=== PATIENT | male | born 1965 | race Caucasian/White ===

== ENCOUNTER 2018-02-06 20:17 | Emergency (ER) | payer OTHER ==
[2018-02-06] MEDS ORDERED: Sodium Chloride 0.9% 1000 ML 1,000 ML ONE ×2 (20:44→21:37)
[2018-02-06] MEDS: Sodium Chloride 0.9% 1000 ML 1,000 ML IV SCH (21:23)
[2018-02-06] MEDS ORDERED: Zofran 4 MG/2 ML VIAL ONE (21:36)
[2018-02-06] MEDS ORDERED: MORPHINE SULFATE 10 MG/ML ONE (21:37)
[2018-02-06] MEDS: MORPHINE SULFATE 10 MG/ML IM ONE (21:39)
[2018-02-06 21:40] LABS: Granulocyte Absolute (ANC) 18.44 (1.4-6.9); Hematocrit 44.1 % (42-50); Hemoglobin 15.6 gm/dl (12.5-18.0); Mean Cell Volume 86.5 fl (78-100); Mean Corpuscular Hemoglobin 30.6 pg (26-32); Mean Corpuscular Hgb Concent. 35.4 g/dl (32-36); Mean Platelet Volume 10.7 fl (6-9.5); Platelet Count 179 K/mm3 (150-450); Red Cell Distribution Width 12.2 % (11.5-14.0); White Blood Count 21.6 K/mm3 (4.0-10.5)
[2018-02-06] MEDS: Zofran 4 MG/2 ML VIAL IV ONE (21:43)
[2018-02-06 21:54] LABS: Appearance CLEAR (CLEAR)
[2018-02-06 21:55] LABS: Bilirubin NEGATIVE (NEGATIVE); Blood NEGATIVE Ery/ul (0-5); Glucose 1000 mg/dL (NEGATIVE); Ketones NEGATIVE (NEGATIVE); Leukocyte Esterase NEGATIVE (NEGATIVE); Nitrite NEGATIVE (NEGATIVE); Protein,Urine Dip NEGATIVE (Negative); Urobilinogen NORMAL mg/dL (0-1)
[2018-02-06] MEDS ORDERED: Zosyn 3.375GM/100 Ml D5W 3.375 GM/100 ML IVPB IV ONE (21:55)
[2018-02-06 22:01] LABS: Amphetamine,Urine NEGATIVE (NEGATIVE); Barbiturate,Urine NEGATIVE (NEGATIVE); Benzodiazepine,Urine POSITIVE (NEGATIVE); Cocaine,Urine NEGATIVE (NEGATIVE); Methadone,Urine NEGATIVE (NEGATIVE); Opiate,Urine NEGATIVE (NEGATIVE); PCP,Urine NEGATIVE (NEGATIVE); THC,Urine POSITIVE (NEGATIVE)
[2018-02-06] MEDS: Sodium Chloride 0.9% 1000 ML 1,000 ML IV STA (22:02)
[2018-02-06] MEDS: Zosyn 3.375GM/100 Ml D5W 3.375 GM/100 ML IVPB IV STA (22:03)
[2018-02-06 22:06] VITALS: BP 126/80; PULSE 108; O2SAT 96
[2018-02-06 22:12] LABS: AMYLASE 30 U/L (30-110); ANION GAP 13.1 MEQ/L (5-15); BLOOD UREA NITROGEN 9 mg/dL (9-20); CHLORIDE 93 mmol/L (98-107); Calcium 9.3 mg/dL (8.4-10.2); Carbon Dioxide 27 mmol/L (22-30); Creatinine 1 0.53 mg/dL (0.66-1.25); Glucose 373 mg/dL (74-106); Potassium 3.7 mmol/L (3.5-5.1); SODIUM 130 mmol/L (137-145)
--- NOTE | 2018-02-06 22:12 | ERPHSYRPT ---
- History of Present Illness Time Seen by Provider: 02/06/18 21:22 Source: patient Exam Limitations: clinical condition Patient Subjective Stated Complaint: 15 years ago had testicular abscess removed at [facility] and 4 days ago developed bump on right testical with N /V/D, Fever at home. Denies recent injury. Denies dysuria, hematuria. Triage Nursing Assessment: Pt is in pain while laying in bed stating he's falling asleep during assessment and requires to be asked questions twice. Physician History: PATIENT COMPLAINS OF PAIN, LEFT SIDED SCROTAL SWELLING X 7 DAYS. DENIES URINARY SYMPTOMS, FEVER OR CHILLS. DENIES NAUSEA, EMESIS OR DIARRHEA Timing/Duration: week(s) Activites at Onset: none Quality: throbbing Onset Location: other (SCROTAL) Severity of Pain-Max: severe Severity of Pain-Current: severe Prior abdominal problems: similar symptoms (SCROTAL SURGERY 10 YEARS AGO) Sexual intercourse history: non-contributory Modifying Factors: Improves With: movement Associated Symptoms: swelling Allergies/Adverse Reactions: No Known Drug Allergies Allergy (Unverified 02/06/18 21:20) Home Medications: No Reportable Medications [No Reported Medications] 02/06/18 [History] Hx Influenza Vaccination/Date Given: No Hx Pneumococcal Vaccination/Date Given: No - Review of Systems Constitutional: Fever Eyes: No Symptoms Ears, Nose, & Throat: No Symptoms Respiratory: No Cough, No Dyspnea Cardiac: No Symptoms, No Chest Pain, No Edema, No Syncope Abdominal/Gastrointestinal: No Abdominal Pain, No Nausea, No Vomiting, No Diarrhea Genitourinary Symptoms: Testicle Pain, Other (SCROTAL SWELLING), No Dysuria Musculoskeletal: No Symptoms, No Back Pain, No Neck Pain Skin: No Rash Neurological: No Dizziness, No Focal Weakness, No Sensory Changes Psychological: No Symptoms Endocrine: No Symptoms All Other Systems: Reviewed and Negative - Past Medical History Pertinent Past Medical History: Yes Cardiac History: Hypertension Endocrine Medical History: Diabetes Type II - Past Surgical History Past Surgical History: Yes Other Surgical History: Partial thyroidectomy - Social History Smoking Status: Current every day smoker Exposure to second hand smoke: No Drug Use: marijuana Patient Lives Alone: No - Nursing Vital Signs Nursing Vital Signs: Initial Vital Signs Pulse Rate 109 H 02/06/18 21:52 Respiratory Rate 18 02/06/18 21:52 Blood Pressure 120/77 02/06/18 21:52 O2 Sat by Pulse Oximetry 95 02/06/18 21:52 Pain Scale Pain Intensity 10 - Physical Exam General Appearance: no apparent distress, alert Eye Exam: PERRL/EOMI, eyes nml inspection Ears, Nose, Throat Exam: normal ENT inspection, TMs normal, pharynx normal, moist mucous membranes Neck Exam: normal inspection, non-tender, supple, full range of motion Respiratory Exam: normal breath sounds, lungs clear, No respiratory distress Cardiovascular Exam: regular rate/rhythm, normal heart sounds, normal peripheral pulses, tachycardia Gastrointestinal/Abdomen Exam: soft, normal bowel sounds (NONTENDER), No tenderness, No mass Male Genitalia Exam: testicular tenderness, other (MARKED SWELLING OVER LEFT SPERMATIC CORD THICKENING SCROTAL WALL WITH INDURATION , NO FOCAL SWELLING OR FLUCTUANCE) Back Exam: normal inspection, normal range of motion, No CVA tenderness, No vertebral tenderness Extremity Exam: normal inspection, normal range of motion, pelvis stable Neurologic Exam: alert, oriented x 3, cooperative, plate slitter and inspector II-XII nml as tested, normal mood/affect, sensation nml, No motor deficits Skin Exam: normal color, warm, dry Lymphatic Exam: No adenopathy SpO2 Interpretation: normal SpO2: 96 Oxygen Delivery: Nasal Cannula - Radiology Ultrasound Exam Scrotal Ultrasound: discussed w/radiologist (MARKED LEFT VARICOELE WITH HYPEREMIA, SWELLING WALL THICKENING, NO EVIDENCE OF FLUID LOCULATIONS OR ABSCESS) Ordered Tests: Active Orders 24 hr Category Date Time Status Clean Catch Urine Specimen STAT Care 02/06/18 20:41 Active IV Insertion STAT Care 02/06/18 20:35 Active TESTICLE [US] Stat Exams 02/06/18 20:45 Taken AMYLASE Stat Lab 02/06/18 21:15 Completed BLOOD CULTURE Stat Lab 02/06/18 21:15 Received BMP Stat Lab 02/06/18 21:15 Completed CBC W DIFF Stat Lab 02/06/18 21:15 Completed Lactic Acid Stat Lab 02/06/18 21:39 Completed Manual Differential NC Stat Lab 02/06/18 21:15 Completed UA Stat Lab 02/06/18 21:05 Completed Urine Triage Profile Stat Lab 02/06/18 21:15 Completed Medication Summary Generic Name Dose Route Start Last Admin Trade Name Freq PRN Reason Stop Dose Admin Sodium Chloride 1,000 mls @ 100 mls/hr 02/06/18 20:45 02/06/18 21:23 Sodium Chloride 0.9% 1000 Ml IV 03/08/18 20:44 100 mls/hr .Q10H MARTI Administration Vancomycin HCl 250 mls @ 167 mls/hr 02/06/18 21:40 Vancomycin 1gm/ Ns 250ml IV 02/06/18 23:09 STAT ONE Discontinued Medications Generic Name Dose Route Start Last Admin Trade Name Freq PRN Reason Stop Dose Admin Sodium Chloride 1,000 mls @ 999 mls/hr 02/06/18 21:33 02/06/18 22:02 Sodium Chloride 0.9% 1000 Ml IV 02/06/18 22:33 999 mls/hr .Q1H1M STA Administration Piperacillin Sod/Tazobactam Sod 3.375 gm in 100 mls @ 200 mls/hr 02/06/18 21: 40 02/06/18 22:03 Zosyn 3.375gm/100 Ml D5w IV 02/06/18 22:09 200 mls/hr STAT STA Administration Piperacillin Sod/Tazobactam Sod Confirm 02/06/18 21:55 Zosyn 3.375gm/100 Ml D5w Administered 02/06/18 21:56 Dose 3.375 gm in 100 mls @ ud IV .STK-MED ONE Morphine Sulfate 10 mg 02/06/18 21:33 02/06/18 21:39 Morphine Sulfate 10 Mg/Ml IM 02/06/18 21:34 10 mg STAT ONE Administration Morphine Sulfate Confirm 02/06/18 21:37 Morphine Sulfate 10 Mg/Ml Administered 02/06/18 21:38 Dose 10 mg .ROUTE .STK-MED ONE Ondansetron HCl 4 mg 02/06/18 21:33 02/06/18 21:43 Zofran 4 Mg/2 Ml Vial IV 02/06/18 21:34 4 mg STAT ONE Administration Ondansetron HCl Confirm 02/06/18 21:36 Zofran 4 Mg/2 Ml Vial Administered 02/06/18 21:37 Dose 4 mg .ROUTE .STK-MED ONE Lab/Rad Data: Laboratory Result Diagrams 02/06/18 21:15 02/06/18 21:15 Laboratory Results 02/06/18 02/06/18 02/06/18 Range/Units 21:39 21:15 21:15 WBC (4.0-10.5) K/mm3 RBC (4.1-5.6) M/mm3 Hgb (12.5-18.0) gm/dl Hct (42-50) % MCV (78-100) fl MCH (26-32) pg MCHC (32-36) g/dl RDW (11.5-14.0) % Plt Count (150-450) K/mm3 MPV (6-9.5) fl Absolute Granulocytes (1.4-6.9) Sodium 130 L (137-145) mmol/L Potassium 3.7 (3.5-5.1) mmol/L Chloride 93 L (98-107) mmol/L Carbon Dioxide 27 (22-30) mmol/L Anion Gap 13.1 (5-15) MEQ/L BUN 9 (9-20) mg/dL Creatinine 0.53 L (0.66-1.25) mg/dL Estimated GFR > 60.0 ML/MIN Glucose 373 H (74-106) mg/dL Lactic Acid 1.6 (0.4-2.0) Calcium 9.3 (8.4-10.2) mg/dL Amylase 30 (30-110) U/L Ur Collection Type Urine Color (YELLOW) Urine Appearance (CLEAR) Urine pH (5-6) Ur Specific [place] (1.005-1.025) Urine Protein (Negative) Urine Ketones (NEGATIVE) Urine Blood (0-5) Jona/ul Urine Nitrite (NEGATIVE) Urine Bilirubin (NEGATIVE) Urine Urobilinogen (0-1) mg/dL Ur Leukocyte Esterase (NEGATIVE) Urine Glucose (NEGATIVE) mg/dL Urine Opiates Level NEGATIVE (NEGATIVE) Ur Methadone NEGATIVE (NEGATIVE) Urine Barbiturates NEGATIVE (NEGATIVE) Ur Phencyclidine (PCP) NEGATIVE (NEGATIVE) Urine Amphetamine NEGATIVE (NEGATIVE) U Benzodiazepine Level POSITIVE (NEGATIVE) Urine Cocaine NEGATIVE (NEGATIVE) Urine Marijuana (THC) POSITIVE (NEGATIVE) Specimen Received 18 02/06/18 Range/Units 21:15 21:05 WBC 21.6 H (4.0-10.5) K/mm3 RBC 5.10 (4.1-5.6) M/mm3 Hgb 15.6 (12.5-18.0) gm/dl Hct 44.1 (42-50) % MCV 86.5 (78-100) fl MCH 30.6 (26-32) pg MCHC 35.4 (32-36) g/dl RDW 12.2 (11.5-14.0) % Plt Count 179 (150-450) K/mm3 MPV 10.7 H (6-9.5) fl Absolute Granulocytes 18.44 H (1.4-6.9) Sodium (137-145) mmol/L Potassium (3.5-5.1) mmol/L Chloride (98-107) mmol/L Carbon Dioxide (22-30) mmol/L Anion Gap (5-15) MEQ/L BUN (9-20) mg/dL Creatinine (0.66-1.25) mg/dL Estimated GFR ML/MIN Glucose (74-106) mg/dL Lactic Acid (0.4-2.0) Calcium (8.4-10.2) mg/dL Amylase (30-110) U/L Ur Collection Type CLEAN CATCH Urine Color YELLOW (YELLOW) Urine Appearance CLEAR (CLEAR) Urine pH 5.0 (5-6) Ur Specific [place] 1.010 (1.005-1.025) Urine Protein NEGATIVE (Negative) Urine Ketones NEGATIVE (NEGATIVE) Urine Blood NEGATIVE (0-5) Jona/ul Urine Nitrite NEGATIVE (NEGATIVE) Urine Bilirubin NEGATIVE (NEGATIVE) Urine Urobilinogen NORMAL (0-1) mg/dL Ur Leukocyte Esterase NEGATIVE (NEGATIVE) Urine Glucose 1000 (NEGATIVE) mg/dL Urine Opiates Level (NEGATIVE) Ur Methadone (NEGATIVE) Urine Barbiturates (NEGATIVE) Ur Phencyclidine (PCP) (NEGATIVE) Urine Amphetamine (NEGATIVE) U Benzodiazepine Level (NEGATIVE) Urine Cocaine (NEGATIVE) Urine Marijuana (THC) (NEGATIVE) Specimen Received 02/06/182104 - Progress Progress: improved Air Movement: good Progress Note: 02/06/18 22:26 AFTER 2 SETS OF BLOOD CULTURES ZOSYN 3.375 GM IVPB, IV BOLUS NORMAL SALINE 1 LITER/HR, LACTIC ACID 1.6 02/06/18 22:28 Discussed with : Other (DISCUSSED WITH DR BRAUN AT 2220 ACCEPTS TRANSFER TO [facility] VIA [facility]) - Departure Time of Disposition: 23:00 Departure Disposition: Transfer Clinical Impression: CELLULITIS SCROTUM Condition: Stable Critical Care Time: No
[2018-02-06 23:05] LABS: BAND 5 % (0.0-2.0); Lymphocytes 11 % (24-44); Monocyte 1 % (0.0-12.0); Neutrophils 83 % (36.-66.); Platelet Estimate NORMAL (NORMAL); Total Cells Counted 100
[2018-02-06] MEDS: Vancomycin 1GM/ Ns 250ML*** 250 ML IV ONE (23:12)
--- NOTE | 2018-02-07 09:04 | XRAY ---
Indication: Left testicular pain. Two-dimensional testicular sonogram performed. Comparison: None Both testicles homogeneous in echogenicity. Color Doppler flow present slightly increased on the left. Right testicle measures 4.7 x 1.8 x 2.8 cm and the left measures 3.8 x 2.6 x 3.5 cm. Left and right epididymis sonographically unremarkable. There is left-sided varicocele accentuated with Valsalva maneuvering. No suspicious extratesticular mass or hydrocele. Impression: 1. Left-sided varicocele. 2. Remaining testicular sonogram is negative. Comment: Preliminary report was given.
== END 2018-02-06 23:05 | disposition short-term general hospital (02) ==
LOC: ED 20:17
DX: N49.2 Inflammatory disorders of scrotum (principal)
CPT/HCPCS: 36000; 36415; 76870; 80048; 80307; 81002; 82150; 83605; 85025; 87040; 96360; 96361; 96374; 96375; 99284; 99285; J2270; J2405; J2543